=== PATIENT | male | born 1950 ===

== ENCOUNTER → 2017-06-17 | Outpatient (CLI) | payer OTHER | LOC: SBRMNEURO 22:34 | PROVIDERS: ATTEND Psychiatry & Neurology Sleep Medicine | DX: G47.39 Other sleep apnea (principal); G47.33 Obstructive sleep apnea (adult) (pediatric) ==

== ENCOUNTER → 2017-07-13 | Outpatient (CLI) | payer OTHER | LOC: SBRMNEURO 20:00 | PROVIDERS: ATTEND Psychiatry & Neurology Sleep Medicine | DX: G47.31 Primary central sleep apnea (principal); G47.52 REM sleep behavior disorder ==